=== PATIENT | female | born 1960 | race African-American/Black ===

== ENCOUNTER 2017-02-19 23:39 | Inpatient (IN) | payer OTHER ==
[2017-02-20 00:13] VITALS: BMI 32.2
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
[2017-02-20] MEDS ORDERED: chlordiazePOXIDE HCL 25 MG CAPSULE PO ONE (00:40)
[2017-02-20] MEDS ORDERED: LOPERAMIDE HCL 2 MG CAPSULE PO PRN (00:40)
[2017-02-20] MEDS ORDERED: guaiFENesin/D-METHORPHAN HB 10 ML UNIT-DOSE CUPS PO PRN (00:40)
[2017-02-20] MEDS ORDERED: MAG HYDROX/AL HYDROX/SIMETH 30 ML UNIT-DOSE CUP PO PRN (00:40)
[2017-02-20] MEDS ORDERED: P-EPHED 60MG/TRIPROLIDI 2.5MG TABLET PO PRN (00:40)
[2017-02-20] MEDS ORDERED: chlordiazePOXIDE HCL 25 MG CAPSULE PO PRN (00:40)
[2017-02-20] MEDS ORDERED: MENTHOL/PHENOL 1 EACH UD MM PRN (00:40)
[2017-02-20] MEDS ORDERED: ACETAMINOPHEN 325 MG TABLET (FP) PO PRN (00:40)
[2017-02-20] MEDS ORDERED: diphenhydrAMINE HCL 50 MG CAPSULE PO PRN (00:40)
[2017-02-20] MEDS ORDERED: IBUPROFEN 400 MG TABLET (FP) PO PRN (00:40)
[2017-02-20] MEDS ORDERED: MAGNESIUM HYDROX 2400MG/30ML ORAL SUSPENSION 30 ML CUP PO PRN (00:40)
[2017-02-20] MEDS ORDERED: MAGNESIUM CITRATE 300 ML BOTTLE PO PRN (00:40)
[2017-02-20] MEDS ORDERED: ALBUTEROL SO4 6.7 GM HFA INHALER IH PRN (00:42)
[2017-02-20] MEDS: chlordiazePOXIDE HCL 25 MG CAPSULE PO SCH ×4 (06:30→22:28)
[2017-02-20 09:51] LABS: MCH 31.2 pg (25.7-33.7); MCHC 33.2 g/dl (32.0-36.0); MEAN CELL VOLUME 94.1 fl (80-96); MEAN PLT VOLUME 9.4 fl (7.5-11.1); PLATELET COUNT 178 K/MM3 (134-434); RDW 13.7 % (11.6-15.6); WHITE BLOOD COUNT 5.5 K/mm3 (4.0-10.0)
[2017-02-20] MEDS ORDERED: METOPROLOL SUCCINATE 200 MG TAB.SR.24H PO SCH (10:00)
[2017-02-20] MEDS ORDERED: RIVAROXABAN 20 MG TABLET PO SCH (10:00)
[2017-02-20 10:04] LABS: URINE APPEARANCE CLEAR; URINE BILIRUBIN NEGATIVE (NEGATIVE); URINE BLOOD NEGATIVE (NEGATIVE); URINE COLOR LTYELLOW; URINE GLUCOSE (UA) NEGATIVE (NEGATIVE); URINE KETONE NEGATIVE (NEGATIVE); URINE LEUK ESTERASE NEGATIVE (NEGATIVE); URINE NITRITE NEGATIVE (NEGATIVE); URINE PROTEIN NEGATIVE (NEGATIVE); URINE UROBILINOGEN NEGATIVE E.U./dl (0.2-1.0)
--- NOTE | 2017-02-20 10:19 | PN ---
S CIWA - CIWA Score Nausea/Vomitin-No Nausea/No Vomiting Muscle Tremors: 4-Moderate,w/Arms Extend Anxiety: 3 Agitation: 3 Paroxysmal Sweats: 3 Orientation: 0-Oriented Tacttile Disturbances: 0-None Auditory Disturbances: 0-None Visual Disturbances: 0-None Headache: 0-None Present CIWA-Ar Total Score: 13 S Progress Note (SOAP) Subjective: sweats irritable interrupted sleep tired headache Objective: 02/20/17 10:18 Vital Signs Temperature 97.5 F L 02/20/17 10:10 Pulse Rate 74 02/20/17 10:10 Respiratory Rate 16 02/20/17 10:10 Blood Pressure 153/90 02/20/17 10:10 O2 Sat by Pulse Oximetry (%) Laboratory Tests 02/20/17 02/20/17 07:00 07:00 WBC 5.5 RBC 3.49 L Hgb 10.9 D Hct 32.9 MCV 94.1 MCHC 33.2 RDW 13.7 Plt Count 178 MPV 9.4 Urine Color Ltyellow Urine Appearance Clear Urine pH 5.0 Urine Protein Negative Urine Glucose (UA) Negative Urine Ketones Negative Urine Blood Negative Urine Nitrite Negative Urine Bilirubin Negative Urine Urobilinogen Negative Ur Leukocyte Esterase Negative rest of labs pending awake/alert lying in bed no acute distress Assessment: 02/20/17 10:18 withdrawal sx Plan: continue detox increase fluids labs pending motrin/tylenol prn
[2017-02-20] MEDS: amLODIPine BESYLATE 5 MG TABLET (FP) PO SCH (10:36)
[2017-02-20] MEDS: valACYclovir HCL 500 MG TABLET (FP) PO SCH (10:36)
[2017-02-20] MEDS: METOPROLOL SUCCINATE 100 MG TAB.SR.24H (FP) PO SCH (10:37)
[2017-02-20] MEDS: PRENATAL VITAMINS W/ FOLIC ACID TABLET (FP) PO SCH (10:37)
[2017-02-20 10:41] LABS: ALBUMIN 3.3 g/dl (3.4-5.0); ALK PHOS 86 U/L (45-117); ANION GAP 10 (8-16); BILIRUBIN,TOTAL 0.5 mg/dL (0.2-1.0); CALCIUM 8.8 mg/dL (8.5-10.1); CO2 24 mmol/L (21-32); COCKROFT - GAULT 119.1955; CREATININE 0.8 mg/dL (0.55-1.02); GLUCOSE,RANDOM 93 mg/dL (74-106); SGOT/AST 16 U/L (15-37); SGPT/ALT 20 U/L (12-78); TOT PROT 6.6 g/dl (6.4-8.2)
--- NOTE | 2017-02-20 11:41 | EKG ---
Test Reason : Blood Pressure : / mmHG Vent. Rate : 067 BPM Atrial Rate : 067 BPM P-R Int : 194 ms QRS Dur : 100 ms QT Int : 476 ms P-R-T Axes : 046 011 016 degrees QTc Int : 502 ms NORMAL SINUS RHYTHM PROLONGED QT ABNORMAL ECG WHEN COMPARED WITH ECG OF 20-NOV-2013 23:05, NO SIGNIFICANT CHANGE WAS FOUND Confirmed by BOONE RODRIGUEZ MD ([id number]) on 02/20/2017 11:41:21 AM Referred By: Confirmed By:BOONE RODRIGUEZ MD
[2017-02-20] MEDS: RIVAROXABAN 20 MG TABLET PO SCH (17:11)
[2017-02-20] MEDS: THIAMINE HCL 100 MG TABLET (FP) PO SCH (22:28)
[2017-02-21] MEDS: hydrOXYzine PAMOATE 50 MG CAPSULE (FP) PO PRN (06:28)
[2017-02-21] MEDS: chlordiazePOXIDE HCL 25 MG CAPSULE PO SCH ×4 (06:33→22:10)
--- NOTE | 2017-02-21 09:35 | CONSULT ---
[facility] Psychiatric Consult - Data Date of interview: 02/21/17 Admission source: [facility] Identifying data: This is 56 years old female with psychiatric hospitalization history intoxicated with: Alcohol, Cannmabis and Cocaine Substance Abuse History: PCP abuse history. Smoking Cessation. Smoking history : Current every day smoker. Have you smoked in the past 12 months: Yes. Aproximately how many cigarettes per day: 2. Cigars Per Day: 0. Hx Chewing Tobacco Use: No. Initiated information on smoking cessation: Yes. 'Breaking Loose' booklet given: 02/20/17. - Substance & Tx. History. Hx Alcohol Use: Yes. Hx Substance Use: No. Substance Use Type: Alcohol. Hx Substance Use Treatment: Yes (DETOX AND REHAB ). - Substances Abused. Alcohol. Route: Oral. Frequency: Daily. Amount used: 4-5 CANS OF 22OZ OF BEER AND 1-2 PINTS OF LIQUOR. Age of first use: 3. Date of Last Use: 02/20/17 Medical History: DVT, HTN, Hyperchleterolemia, Syncope history, CAD Psychiatric History: Patient reprots history of depression with most recent psychiatric admission on 2011 at [facility] with suicidal ideation,. denies suicidal attempts history. Patioent reprots taking prior to admission: Seroquel 100mg pop qhs. Zoloft 50mg poqd Physical/Sexual Abuse/Trauma History: Denies Additional Comment: Seroquel 100mg pop qhs. Zoloft 50mg poqd Mental Status Exam - Mental Status Exam Alert and Oriented to: Person Cognitive Function: Fair Patient Appearance: Unkempt Mood: Sad Affect: Flat Patient Behavior: Sedated Speech Pattern: Delayed Voice Loudness: Mildly Soft/Quiet Thought Process: Circumstantial Thought Disorder: Being Controlled Hallucinations: Denies Suicidal Ideation: Denies Homicidal Ideation: Denies Insight/Judgement: Fair Sleep: Difficulty falling asleep Appetite: Weight gain Muscle strength/Tone: Mild Hypotonicity Gait/Station: Shuffling Additional Comments: Seroquel 100mg pop qhs. Zoloft 50mg poqd Psychiatric Findings - Problem List ([place] 1, 2,3) (1) Alcohol dependence with uncomplicated withdrawal Current Visit: Yes Status: Chronic (2) Alcohol dependence Current Visit: No Status: Acute (3) Cannabis dependence Current Visit: No Status: Acute (4) Cocaine dependence Current Visit: No Status: Acute (5) PCP dependence Current Visit: No Status: Acute (6) Substance induced mood disorder Current Visit: No Status: Acute - Initial Treatment Plan Initial Treatment Plan: Seroquel 100mg pop qhs. Zoloft 50mg poqd
[2017-02-21] MEDS: METOPROLOL SUCCINATE 100 MG TAB.SR.24H (FP) PO SCH (10:57)
[2017-02-21] MEDS: PRENATAL VITAMINS W/ FOLIC ACID TABLET (FP) PO SCH (10:57)
[2017-02-21] MEDS: SERTRALINE HCL 50 MG TABLET (FP) PO SCH (10:57)
[2017-02-21] MEDS: amLODIPine BESYLATE 5 MG TABLET (FP) PO SCH (10:57)
[2017-02-21] MEDS: valACYclovir HCL 500 MG TABLET (FP) PO SCH (10:57)
--- NOTE | 2017-02-21 11:09 | PN ---
S CIWA - CIWA Score Nausea/Vomitin-No Nausea/No Vomiting Muscle Tremors: 4-Moderate,w/Arms Extend Anxiety: 3 Agitation: 4-Moderately Restless Paroxysmal Sweats: 3 Orientation: 0-Oriented Tacttile Disturbances: 0-None Auditory Disturbances: 0-None Visual Disturbances: 0-None Headache: 0-None Present CIWA-Ar Total Score: 14 BHS Progress Note (SOAP) Subjective: irritable agitation anxiety interrupted sleep Objective: 02/21/17 11:08 Vital Signs Temperature 97.2 F L 02/21/17 06:00 Pulse Rate 60 02/21/17 06:00 Respiratory Rate 18 02/21/17 06:00 Blood Pressure 131/66 02/21/17 06:00 O2 Sat by Pulse Oximetry (%) Laboratory Tests 02/20/17 02/20/17 02/20/17 07:00 07:00 07:00 WBC 5.5 RBC 3.49 L Hgb 10.9 D Hct 32.9 MCV 94.1 MCHC 33.2 RDW 13.7 Plt Count 178 MPV 9.4 Sodium 140 Potassium 4.5 Chloride 106 Carbon Dioxide 24 Anion Gap 10 BUN 20 H D Creatinine 0.8 Creat Clearance w eGFR > 60 Random Glucose 93 Calcium 8.8 Total Bilirubin 0.5 AST 16 ALT 20 Alkaline Phosphatase 86 Total Protein 6.6 Albumin 3.3 L Urine Color Urine Appearance Urine pH Ur Specific Turner Urine Protein Urine Glucose (UA) Urine Ketones Urine Blood Urine Nitrite Urine Bilirubin Urine Urobilinogen Ur Leukocyte Esterase RPR Titer Nonreactive 02/20/17 07:00 WBC RBC Hgb Hct MCV MCHC RDW Plt Count MPV Sodium Potassium Chloride Carbon Dioxide Anion Gap BUN Creatinine Creat Clearance w eGFR Random Glucose Calcium Total Bilirubin AST ALT Alkaline Phosphatase Total Protein Albumin Urine Color Ltyellow Urine Appearance Clear Urine pH 5.0 Ur Specific Turner 1.015 Urine Protein Negative Urine Glucose (UA) Negative Urine Ketones Negative Urine Blood Negative Urine Nitrite Negative Urine Bilirubin Negative Urine Urobilinogen Negative Ur Leukocyte Esterase Negative RPR Titer awake/alert ambulating no acute distress Assessment: 02/21/17 11:08 withdrawal sx Plan: continue detox increase fluids
[2017-02-21] MEDS: RIVAROXABAN 20 MG TABLET PO SCH (17:39)
[2017-02-21] MEDS: THIAMINE HCL 100 MG TABLET (FP) PO SCH (22:10)
[2017-02-21] MEDS: QUEtiapine FUMARATE 100 MG TABLET (FP) PO SCH (22:10)
[2017-02-22] MEDS: chlordiazePOXIDE 5 MG CAPSULE PO SCH ×4 (05:43→22:47)
--- NOTE | 2017-02-22 10:30 | PN ---
BHS Progress Note (SOAP) Subjective: irritable agitation angry/crying Objective: 02/22/17 10:29 Vital Signs Temperature 98.1 F 02/22/17 10:13 Pulse Rate 90 02/22/17 10:13 Respiratory Rate 18 02/22/17 10:13 Blood Pressure 133/75 02/22/17 10:13 O2 Sat by Pulse Oximetry (%) awake/alert ambulating no acute distress Assessment: 02/22/17 10:29 withdrawal sx Plan: continue detox increase fluids psych revisit reordered d/c in am
[2017-02-22] MEDS: amLODIPine BESYLATE 5 MG TABLET (FP) PO SCH (10:41)
[2017-02-22] MEDS: valACYclovir HCL 500 MG TABLET (FP) PO SCH (10:41)
[2017-02-22] MEDS: METOPROLOL SUCCINATE 100 MG TAB.SR.24H (FP) PO SCH (10:41)
[2017-02-22] MEDS: SERTRALINE HCL 50 MG TABLET (FP) PO SCH (10:41)
[2017-02-22] MEDS: PRENATAL VITAMINS W/ FOLIC ACID TABLET (FP) PO SCH (10:41)
[2017-02-22] MEDS: hydrOXYzine PAMOATE 50 MG CAPSULE (FP) PO PRN (10:43)
[2017-02-22] MEDS: RIVAROXABAN 20 MG TABLET PO SCH (18:29)
[2017-02-22] MEDS: THIAMINE HCL 100 MG TABLET (FP) PO SCH (22:48)
[2017-02-22] MEDS: QUEtiapine FUMARATE 100 MG TABLET (FP) PO SCH (22:48)
[2017-02-23] MEDS: chlordiazePOXIDE HCL 10 MG CAPSULE PO SCH ×4 (05:35→22:24)
--- NOTE | 2017-02-23 09:21 | PN ---
S Progress Note (SOAP) Subjective: ALERT,NO COMPLAINT Objective: 02/23/17 09:20 Vital Signs Temperature 96.6 F L 02/23/17 06:22 Pulse Rate 64 02/23/17 06:22 Respiratory Rate 18 02/23/17 06:22 Blood Pressure 148/95 02/23/17 06:22 O2 Sat by Pulse Oximetry (%) Assessment: 02/23/17 09:20 DETOX COMPLETED,NO WITHDRAWAL SYMPTOM Plan: DISCHARGE TODAY,FOLLOW UP WITH AFTER CARE PROGRAM ARRANGEMENT
--- NOTE | 2017-02-23 09:22 | DS ---
[facility] Detox Discharge Summary Admission Date: 02/20/17 Discharge Date: 02/23/17 - Physical Exam Results Vital Signs: Vital Signs Temperature 96.6 F L 02/23/17 06:22 Pulse Rate 64 02/23/17 06:22 Respiratory Rate 18 02/23/17 06:22 Blood Pressure 148/95 02/23/17 06:22 O2 Sat by Pulse Oximetry (%) - Medication Discharge Medications: Ambulatory Orders Aspirin 81 mg PO AM 11/21/13 Citalopram Hydrobromide [Celexa -] 20 mg PO DAILY 11/21/13 Quetiapine Fumarate [Seroquel] 100 mg PO HS 11/21/13 Citalopram Hydrobromide [Celexa -] 20 mg PO DAILY #30 tablet 11/23/13 Quetiapine Fumarate [Seroquel -] 100 mg PO HS #30 tablet 11/23/13 Isosorbide Dinitrate [Isordil] 30 mg PO AM #30 tablet 11/25/13 Quetiapine Fumarate [Seroquel -] 50 mg PO HS #30 tablet 08/07/16 Quetiapine Fumarate [Seroquel -] 50 mg PO HS #30 tablet 08/07/16 Sertraline HCl [Zoloft -] 50 mg PO DAILY #30 tablet 08/07/16 Amlodipine Besylate [Norvasc -] 5 mg PO DAILY #30 tablet 08/10/16 Aspirin [ASA -] 81 mg PO AM #30 tab.chew 08/10/16 Atorvastatin Ca [Lipitor] 80 mg PO HS #30 tab 08/10/16 Clopidogrel Bisulfate [Plavix -] 75 mg PO DAILY #30 tablet 08/10/16 Isosorbide Dinitrate [Isordil -] 30 mg PO AM #30 tablet 08/10/16 Metoprolol Succinate [Toprol XL -] 200 mg PO DAILY #30 tab.sr.24h 08/10/16 Valacyclovir HCl [Valtrex -] 500 mg PO DAILY #10 tablet 08/10/16 Quetiapine Fumarate [Seroquel -] 50 mg PO HS #30 tablet 02/21/17 Sertraline HCl [Zoloft -] 50 mg PO DAILY #30 tablet 02/21/17
--- NOTE | 2017-02-23 09:32 | PN ---
B[facility] Progress Note Note: ALERT,IRRITABLE,ANXIOUS,WILL OBSERVE PATIENT,CONTINUE DETOX
[2017-02-23] MEDS: METOPROLOL SUCCINATE 100 MG TAB.SR.24H (FP) PO SCH (10:43)
[2017-02-23] MEDS: SERTRALINE HCL 50 MG TABLET (FP) PO SCH (10:43)
[2017-02-23] MEDS: amLODIPine BESYLATE 5 MG TABLET (FP) PO SCH (10:43)
[2017-02-23] MEDS: PRENATAL VITAMINS W/ FOLIC ACID TABLET (FP) PO SCH (10:43)
[2017-02-23] MEDS: valACYclovir HCL 500 MG TABLET (FP) PO SCH (10:43)
[2017-02-23] MEDS: RIVAROXABAN 20 MG TABLET PO SCH (17:14)
[2017-02-23] MEDS: hydrOXYzine PAMOATE 50 MG CAPSULE (FP) PO PRN (19:13)
[2017-02-23] MEDS: QUEtiapine FUMARATE 100 MG TABLET (FP) PO SCH (22:24)
[2017-02-23] MEDS: THIAMINE HCL 100 MG TABLET (FP) PO SCH (22:24)
[2017-02-24 06:45] VITALS: BP 137/80; PULSE 61; TEMP 97.5
[2017-02-24] MEDS: METOPROLOL SUCCINATE 100 MG TAB.SR.24H (FP) PO SCH (09:28)
[2017-02-24] MEDS: PRENATAL VITAMINS W/ FOLIC ACID TABLET (FP) PO SCH (09:28)
[2017-02-24] MEDS: valACYclovir HCL 500 MG TABLET (FP) PO SCH (09:28)
[2017-02-24] MEDS: SERTRALINE HCL 50 MG TABLET (FP) PO SCH (09:29)
[2017-02-24] MEDS: amLODIPine BESYLATE 5 MG TABLET (FP) PO SCH (09:29)
--- NOTE | 2017-02-24 09:29 | PN ---
S Progress Note (SOAP) Subjective: ALERT,NO COMPLAINT Objective: 02/24/17 09:28 Vital Signs Temperature 97.5 F L 02/24/17 06:00 Pulse Rate 61 02/24/17 06:00 Respiratory Rate 18 02/24/17 06:00 Blood Pressure 137/80 02/24/17 06:00 O2 Sat by Pulse Oximetry (%) Assessment: 02/24/17 09:28 DETOX COMPLETED,NO WITHDRAWAL SYMPTOM Plan: DISCHARGE TODAY TO [facility]
--- NOTE | 2017-02-24 09:36 | DS ---
[facility] Detox Discharge Summary Admission Date: 02/20/17 Discharge Date: 02/24/17 - History Present History: Alcohol Dependence Additional Comments: FOLLOW UP WITH [facility] Pertinent Past History: ESSENTIAL HYPERTENSION HYPERCHOLESTEROLEMIA DVT HISTORY GENITAL HERPES - Physical Exam Results Vital Signs: Vital Signs Temperature 97.5 F L 02/24/17 06:00 Pulse Rate 61 02/24/17 06:00 Respiratory Rate 18 02/24/17 06:00 Blood Pressure 137/80 02/24/17 06:00 O2 Sat by Pulse Oximetry (%) Pertinent Admission Physical Exam Findings: WITHDRAWAL SYMPTOM - Treatment Hospital Course: Detox Protocol Followed, Detoxed Safely, Responded well, Discharged Condition Good, Rehab Referral Accepted Patient has Accepted a Rehab Referral to: [facility] - Medication Discharge Medications: Ambulatory Orders Aspirin 81 mg PO AM 11/21/13 Citalopram Hydrobromide [Celexa -] 20 mg PO DAILY 11/21/13 Quetiapine Fumarate [Seroquel] 100 mg PO HS 11/21/13 Citalopram Hydrobromide [Celexa -] 20 mg PO DAILY #30 tablet 11/23/13 Quetiapine Fumarate [Seroquel -] 100 mg PO HS #30 tablet 11/23/13 Isosorbide Dinitrate [Isordil] 30 mg PO AM #30 tablet 11/25/13 Quetiapine Fumarate [Seroquel -] 50 mg PO HS #30 tablet 08/07/16 Quetiapine Fumarate [Seroquel -] 50 mg PO HS #30 tablet 08/07/16 Sertraline HCl [Zoloft -] 50 mg PO DAILY #30 tablet 08/07/16 Amlodipine Besylate [Norvasc -] 5 mg PO DAILY #30 tablet 08/10/16 Aspirin [ASA -] 81 mg PO AM #30 tab.chew 08/10/16 Atorvastatin Ca [Lipitor] 80 mg PO HS #30 tab 08/10/16 Clopidogrel Bisulfate [Plavix -] 75 mg PO DAILY #30 tablet 08/10/16 Isosorbide Dinitrate [Isordil -] 30 mg PO AM #30 tablet 08/10/16 Metoprolol Succinate [Toprol XL -] 200 mg PO DAILY #30 tab.sr.24h 08/10/16 Valacyclovir HCl [Valtrex -] 500 mg PO DAILY #10 tablet 08/10/16 Quetiapine Fumarate [Seroquel -] 50 mg PO HS #30 tablet 02/21/17 Sertraline HCl [Zoloft -] 50 mg PO DAILY #30 tablet 02/21/17 - Diagnosis (1) Alcohol dependence with uncomplicated withdrawal Current Visit: Yes Status: Chronic (2) DVT (deep venous thrombosis) Current Visit: Yes Status: Chronic (3) Essential hypertension Current Visit: Yes Status: Chronic (4) Genital herpes in women Current Visit: Yes Status: Chronic (5) Hypercholesterolemia Current Visit: Yes Status: Chronic (6) Depressive disorder Current Visit: No Status: Chronic - AMA Did Patient Leave Against Medical Advice: No
== END 2017-02-24 10:09 | disposition home or self-care (01) | DRG 775 ==
LOC: YASAS 23:39 → Y6N 02-20 01:49
PROVIDERS: ADMIT Internal Medicine; ATTEND Internal Medicine
PROC: HZ2ZZZZ Detoxification Services for Substance Abuse Treatment (ICD-10-PCS; principal; 2017-02-20)
DX: F10.230 Alcohol dependence with withdrawal, uncomplicated (principal); F32.9 Major depressive disorder, single episode, unspecified; F19.24 Other psychoactive substance dependence with psychoactive substance-induced mood disorder; Z86.718 Personal history of other venous thrombosis and embolism; I10 Essential (primary) hypertension; A60.00 Herpesviral infection of urogenital system, unspecified; E78.00 Pure hypercholesterolemia, unspecified; Z72.0 Tobacco use; D64.9 Anemia, unspecified; J45.909 Unspecified asthma, uncomplicated; J44.9 Chronic obstructive pulmonary disease, unspecified; I25.10 Atherosclerotic heart disease of native coronary artery without angina pectoris; Z95.5 Presence of coronary angioplasty implant and graft; Z91.14 Patient's other noncompliance with medication regimen; Z91.5 Personal history of self-harm
CPT/HCPCS: 36415; 80053; 81003; 85027; 86593; 93005; 93010

== ENCOUNTER 2017-02-24 10:12 | Inpatient (IN) | payer OTHER ==
[2017-02-24] MEDS ORDERED: LOPERAMIDE HCL 2 MG CAPSULE PO PRN (11:58)
[2017-02-24] MEDS ORDERED: guaiFENesin/D-METHORPHAN HB 10 ML UNIT-DOSE CUPS PO PRN (11:58)
[2017-02-24] MEDS ORDERED: MAGNESIUM HYDROX 2400MG/30ML ORAL SUSPENSION 30 ML CUP PO PRN (11:58)
[2017-02-24] MEDS ORDERED: IBUPROFEN 400 MG TABLET (FP) PO PRN (11:58)
[2017-02-24] MEDS ORDERED: MAGNESIUM CITRATE 300 ML BOTTLE PO PRN (11:58)
[2017-02-24] MEDS ORDERED: MENTHOL/PHENOL 1 EACH UD MM PRN (11:58)
[2017-02-24] MEDS ORDERED: MAG HYDROX/AL HYDROX/SIMETH 30 ML UNIT-DOSE CUP PO PRN (11:58)
[2017-02-24] MEDS ORDERED: P-EPHED 60MG/TRIPROLIDI 2.5MG TABLET PO PRN (11:58)
[2017-02-24] MEDS ORDERED: ALBUTEROL SO4 6.7 GM HFA INHALER IH PRN (12:00)
[2017-02-24] MEDS: hydrOXYzine PAMOATE 50 MG CAPSULE (FP) PO PRN (13:11)
[2017-02-24] MEDS: QUEtiapine FUMARATE 100 MG TABLET (FP) PO SCH (21:43)
[2017-02-24] MEDS: THIAMINE HCL 100 MG TABLET (FP) PO SCH (21:44)
[2017-02-25] MEDS ORDERED: METOPROLOL SUCCINATE 100 MG TAB.SR.24H (FP) PO SCH (10:00)
[2017-02-25] MEDS ORDERED: CITALOPRAM HYDROBROMIDE 20 MG TABLET (FP) PO SCH (10:00)
[2017-02-25] MEDS ORDERED: RIVAROXABAN 20 MG TABLET PO SCH (10:00)
[2017-02-25] MEDS: valACYclovir HCL 500 MG TABLET (FP) PO SCH (10:36)
[2017-02-25] MEDS: SERTRALINE HCL 50 MG TABLET (FP) PO SCH (10:36)
[2017-02-25] MEDS: PRENATAL VITAMINS W/ FOLIC ACID TABLET (FP) PO SCH (10:36)
[2017-02-25] MEDS: ASPIRIN 81 MG CHEWABLE TABLETS PO SCH (10:37)
[2017-02-25] MEDS: amLODIPine BESYLATE 5 MG TABLET (FP) PO SCH (10:38)
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
[2017-02-25 12:38] LABS: HIV 1 & 2 AB NEGATIVE; HIV 1 AGp24 NEGATIVE
--- NOTE | 2017-02-25 13:13 | PN ---
BHS Progress Note Note: Slight hypotension with metoprolol xl Vital Signs 02/25/17 02/25/17 07:20 09:23 Temperature 97.8 F Pulse Rate 62 77 Respiratory 18 Rate Blood Pressure 126/86 107/74 P : metoprolol 50mg tid
[2017-02-25] MEDS: METOPROLOL TARTRATE 50 MG TABLET (FP) PO SCH ×2 (14:29→21:33)
[2017-02-25] MEDS: hydrOXYzine PAMOATE 50 MG CAPSULE (FP) PO PRN (14:30)
[2017-02-25] MEDS: RIVAROXABAN 20 MG TABLET PO SCH (18:20)
[2017-02-25] MEDS: QUEtiapine FUMARATE 100 MG TABLET (FP) PO SCH (21:34)
[2017-02-25] MEDS: THIAMINE HCL 100 MG TABLET (FP) PO SCH (21:34)
[2017-02-25] MEDS: prednisoLONE ACETATE 1% OPHTH SUSP 5 ML BOTTLE OD SCH (23:30)
[2017-02-26] MEDS: METOPROLOL TARTRATE 50 MG TABLET (FP) PO SCH ×3 (06:29→21:52)
[2017-02-26] MEDS ORDERED: PT OWN MED DRAWER 7, Y5N ONE ×4 (08:48→21:03)
[2017-02-26] MEDS: PRENATAL VITAMINS W/ FOLIC ACID TABLET (FP) PO SCH (10:41)
[2017-02-26] MEDS: amLODIPine BESYLATE 5 MG TABLET (FP) PO SCH (10:41)
[2017-02-26] MEDS: valACYclovir HCL 500 MG TABLET (FP) PO SCH (10:41)
[2017-02-26] MEDS: ASPIRIN 81 MG CHEWABLE TABLETS PO SCH (10:41)
[2017-02-26] MEDS: SERTRALINE HCL 50 MG TABLET (FP) PO SCH (10:41)
[2017-02-26] MEDS: prednisoLONE ACETATE 1% OPHTH SUSP 5 ML BOTTLE OD SCH ×4 (10:42→21:53)
--- NOTE | 2017-02-26 13:37 | HP ---
[facility] Rehab Assess/Revision - Admission History Admitted to Rehab from: [facility] Date of Admission to Rehab: 02/24/17 - Vital signs Vital Signs: Vital Signs Period Temp Pulse Resp BP Sys/Christina Pulse Ox Last 24 Hr 98 F 65-74 18-18 115-135/83-86 - Findings Detox History & Physical reviewed: Yes Concur with findings: Yes
[2017-02-26] MEDS ORDERED: NITROGLYCERIN SUBLINGUAL 1/150 0.4 MG TAB SL PRN (13:38)
[2017-02-26] MEDS: RIVAROXABAN 20 MG TABLET PO SCH (18:13)
[2017-02-26] MEDS: ISOSORBIDE DINITRATE 10 MG TABLET (FP) PO SCH (21:52)
[2017-02-26] MEDS: QUEtiapine FUMARATE 100 MG TABLET (FP) PO SCH (21:52)
[2017-02-26] MEDS: THIAMINE HCL 100 MG TABLET (FP) PO SCH (21:55)
[2017-02-27] MEDS: METOPROLOL TARTRATE 50 MG TABLET (FP) PO SCH ×3 (06:34→21:46)
[2017-02-27] MEDS ORDERED: PT OWN MED DRAWER 7, Y5N ONE ×3 (08:34→22:48)
[2017-02-27] MEDS: PRENATAL VITAMINS W/ FOLIC ACID TABLET (FP) PO SCH (09:43)
[2017-02-27] MEDS: amLODIPine BESYLATE 5 MG TABLET (FP) PO SCH (09:43)
[2017-02-27] MEDS: valACYclovir HCL 500 MG TABLET (FP) PO SCH (09:44)
[2017-02-27] MEDS: ASPIRIN 81 MG CHEWABLE TABLETS PO SCH (09:44)
[2017-02-27] MEDS: SERTRALINE HCL 50 MG TABLET (FP) PO SCH (09:44)
[2017-02-27] MEDS: ISOSORBIDE DINITRATE 10 MG TABLET (FP) PO SCH ×2 (09:46→21:48)
[2017-02-27] MEDS: ACETAMINOPHEN 325 MG TABLET (FP) PO PRN (09:46)
[2017-02-27] MEDS: prednisoLONE ACETATE 1% OPHTH SUSP 5 ML BOTTLE OD SCH ×4 (09:47→21:47)
[2017-02-27] MEDS ORDERED: ISOSORBIDE DINITRATE 5 MG TABLET PO SCH (10:00)
[2017-02-27] MEDS: hydrOXYzine PAMOATE 50 MG CAPSULE (FP) PO PRN (13:35)
[2017-02-27] MEDS: TOPIRAMATE 25 MG TABLET (FP) PO SCH (15:27)
[2017-02-27] MEDS: RIVAROXABAN 20 MG TABLET PO SCH (18:30)
[2017-02-27] MEDS: QUEtiapine FUMARATE 100 MG TABLET (FP) PO SCH (21:46)
[2017-02-27] MEDS: THIAMINE HCL 100 MG TABLET (FP) PO SCH (21:46)
[2017-02-27] MEDS: PRAMIPEXOLE DIHYDROCHLORIDE 0.125 MG TABLET PO SCH (21:48)
[2017-02-28] MEDS: ACETAMINOPHEN 325 MG TABLET (FP) PO PRN (06:15)
[2017-02-28] MEDS ORDERED: PT OWN MED DRAWER 7, Y5N ONE ×2 (08:13→21:35)
[2017-02-28] MEDS: ASPIRIN 81 MG CHEWABLE TABLETS PO SCH (10:26)
[2017-02-28] MEDS: METOPROLOL TARTRATE 50 MG TABLET (FP) PO SCH ×2 (10:26→21:35)
[2017-02-28] MEDS: prednisoLONE ACETATE 1% OPHTH SUSP 5 ML BOTTLE OD SCH ×4 (10:26→21:34)
[2017-02-28] MEDS: amLODIPine BESYLATE 5 MG TABLET (FP) PO SCH (10:26)
[2017-02-28] MEDS: SERTRALINE HCL 50 MG TABLET (FP) PO SCH (10:26)
[2017-02-28] MEDS: PRENATAL VITAMINS W/ FOLIC ACID TABLET (FP) PO SCH (10:26)
[2017-02-28] MEDS: valACYclovir HCL 500 MG TABLET (FP) PO SCH (10:26)
[2017-02-28] MEDS: TOPIRAMATE 25 MG TABLET (FP) PO SCH (10:27)
[2017-02-28] MEDS: ISOSORBIDE DINITRATE 10 MG TABLET (FP) PO SCH (10:28)
--- NOTE | 2017-02-28 15:15 | PN ---
S Progress Note Note: pt. refuses isordil,she no longer takes it at home. d/c isordil
[2017-02-28] MEDS: RIVAROXABAN 20 MG TABLET PO SCH (18:30)
[2017-02-28] MEDS: QUEtiapine FUMARATE 100 MG TABLET (FP) PO SCH (21:32)
[2017-02-28] MEDS: THIAMINE HCL 100 MG TABLET (FP) PO SCH (21:33)
[2017-02-28] MEDS: PRAMIPEXOLE DIHYDROCHLORIDE 0.125 MG TABLET PO SCH (21:35)
[2017-03-01] MEDS ORDERED: PT OWN MED DRAWER 7, Y5N ONE ×4 (08:40→18:11)
[2017-03-01] MEDS: TOPIRAMATE 25 MG TABLET (FP) PO SCH ×2 (10:53→21:39)
[2017-03-01] MEDS: SERTRALINE HCL 50 MG TABLET (FP) PO SCH (10:54)
[2017-03-01] MEDS: PRENATAL VITAMINS W/ FOLIC ACID TABLET (FP) PO SCH (10:54)
[2017-03-01] MEDS: ASPIRIN 81 MG CHEWABLE TABLETS PO SCH (10:54)
[2017-03-01] MEDS: valACYclovir HCL 500 MG TABLET (FP) PO SCH (10:54)
[2017-03-01] MEDS: prednisoLONE ACETATE 1% OPHTH SUSP 5 ML BOTTLE OD SCH ×4 (10:54→22:35)
[2017-03-01] MEDS: METOPROLOL TARTRATE 50 MG TABLET (FP) PO SCH ×2 (10:54→21:38)
[2017-03-01] MEDS: amLODIPine BESYLATE 5 MG TABLET (FP) PO SCH (10:55)
--- NOTE | 2017-03-01 15:12 | PN ---
BHS Progress Note Note: C/O headache,she thinks that it's caused by amlodipine. D/C amlodipine
[2017-03-01] MEDS: RIVAROXABAN 20 MG TABLET PO SCH (18:09)
[2017-03-01] MEDS: QUEtiapine FUMARATE 100 MG TABLET (FP) PO SCH (21:38)
[2017-03-01] MEDS: THIAMINE HCL 100 MG TABLET (FP) PO SCH (21:38)
[2017-03-01] MEDS: PRAMIPEXOLE DIHYDROCHLORIDE 0.125 MG TABLET PO SCH (21:39)
[2017-03-02] MEDS ORDERED: PT OWN MED DRAWER 7, Y5N ONE (08:24)
[2017-03-02] MEDS: PRENATAL VITAMINS W/ FOLIC ACID TABLET (FP) PO SCH (09:48)
[2017-03-02] MEDS: SERTRALINE HCL 50 MG TABLET (FP) PO SCH (09:48)
[2017-03-02] MEDS: ASPIRIN 81 MG CHEWABLE TABLETS PO SCH (09:48)
[2017-03-02] MEDS: prednisoLONE ACETATE 1% OPHTH SUSP 5 ML BOTTLE OD SCH ×4 (09:48→21:34)
[2017-03-02] MEDS: valACYclovir HCL 500 MG TABLET (FP) PO SCH (09:48)
[2017-03-02] MEDS: TOPIRAMATE 25 MG TABLET (FP) PO SCH ×2 (09:49→21:33)
[2017-03-02] MEDS: METOPROLOL TARTRATE 50 MG TABLET (FP) PO SCH ×2 (09:51→21:33)
[2017-03-02] MEDS: RIVAROXABAN 20 MG TABLET PO SCH (18:20)
[2017-03-02] MEDS: hydrOXYzine PAMOATE 50 MG CAPSULE (FP) PO PRN (18:22)
[2017-03-02] MEDS: PRAMIPEXOLE DIHYDROCHLORIDE 0.125 MG TABLET PO SCH (20:03)
[2017-03-02] MEDS: THIAMINE HCL 100 MG TABLET (FP) PO SCH (21:33)
[2017-03-02] MEDS: QUEtiapine FUMARATE 100 MG TABLET (FP) PO SCH (21:33)
[2017-03-02] MEDS: diphenhydrAMINE HCL 50 MG CAPSULE PO PRN (21:34)
[2017-03-03] MEDS: ASPIRIN 81 MG CHEWABLE TABLETS PO SCH (09:38)
[2017-03-03] MEDS: SERTRALINE HCL 50 MG TABLET (FP) PO SCH (09:38)
[2017-03-03] MEDS: prednisoLONE ACETATE 1% OPHTH SUSP 5 ML BOTTLE OD SCH ×4 (09:38→21:20)
[2017-03-03] MEDS: PRENATAL VITAMINS W/ FOLIC ACID TABLET (FP) PO SCH (09:38)
[2017-03-03] MEDS: METOPROLOL TARTRATE 50 MG TABLET (FP) PO SCH ×2 (09:39→21:19)
[2017-03-03] MEDS: valACYclovir HCL 500 MG TABLET (FP) PO SCH (09:39)
[2017-03-03] MEDS: TOPIRAMATE 25 MG TABLET (FP) PO SCH ×2 (09:39→21:19)
[2017-03-03] MEDS ORDERED: PT OWN MED DRAWER 7, Y5N ONE (19:06)
[2017-03-03] MEDS: RIVAROXABAN 20 MG TABLET PO SCH (19:09)
[2017-03-03] MEDS: PRAMIPEXOLE DIHYDROCHLORIDE 0.25 MG TABLET PO SCH (19:12)
[2017-03-03] MEDS: QUEtiapine FUMARATE 100 MG TABLET (FP) PO SCH (21:19)
[2017-03-03] MEDS: THIAMINE HCL 100 MG TABLET (FP) PO SCH (21:19)
[2017-03-03] MEDS: diphenhydrAMINE HCL 50 MG CAPSULE PO PRN (21:19)
[2017-03-04] MEDS ORDERED: PT OWN MED DRAWER 7, Y5N ONE ×4 (08:37→19:14)
[2017-03-04] MEDS: PRENATAL VITAMINS W/ FOLIC ACID TABLET (FP) PO SCH (10:17)
[2017-03-04] MEDS: prednisoLONE ACETATE 1% OPHTH SUSP 5 ML BOTTLE OD SCH ×4 (10:17→21:40)
[2017-03-04] MEDS: ASPIRIN 81 MG CHEWABLE TABLETS PO SCH (10:17)
[2017-03-04] MEDS: TOPIRAMATE 25 MG TABLET (FP) PO SCH ×2 (10:18→21:39)
[2017-03-04] MEDS: valACYclovir HCL 500 MG TABLET (FP) PO SCH (10:18)
[2017-03-04] MEDS: METOPROLOL TARTRATE 50 MG TABLET (FP) PO SCH ×2 (10:18→21:39)
[2017-03-04] MEDS: SERTRALINE HCL 50 MG TABLET (FP) PO SCH (10:18)
[2017-03-04] MEDS: RIVAROXABAN 20 MG TABLET PO SCH (18:25)
[2017-03-04] MEDS: QUEtiapine FUMARATE 100 MG TABLET (FP) PO SCH (21:39)
[2017-03-04] MEDS: THIAMINE HCL 100 MG TABLET (FP) PO SCH (21:39)
[2017-03-04] MEDS: PRAMIPEXOLE DIHYDROCHLORIDE 0.25 MG TABLET PO SCH (21:40)
[2017-03-04] MEDS: diphenhydrAMINE HCL 50 MG CAPSULE PO PRN (21:40)
[2017-03-05] MEDS: ASPIRIN 81 MG CHEWABLE TABLETS PO SCH (09:57)
[2017-03-05] MEDS: prednisoLONE ACETATE 1% OPHTH SUSP 5 ML BOTTLE OD SCH ×2 (09:57→13:06)
[2017-03-05] MEDS: SERTRALINE HCL 50 MG TABLET (FP) PO SCH (09:58)
[2017-03-05] MEDS: METOPROLOL TARTRATE 50 MG TABLET (FP) PO SCH ×2 (09:58→21:17)
[2017-03-05] MEDS: TOPIRAMATE 25 MG TABLET (FP) PO SCH ×2 (09:58→21:18)
[2017-03-05] MEDS: PRENATAL VITAMINS W/ FOLIC ACID TABLET (FP) PO SCH (09:59)
[2017-03-05] MEDS: RIVAROXABAN 20 MG TABLET PO SCH (18:25)
[2017-03-05] MEDS: THIAMINE HCL 100 MG TABLET (FP) PO SCH (21:17)
[2017-03-05] MEDS: diphenhydrAMINE HCL 50 MG CAPSULE PO PRN (21:17)
[2017-03-05] MEDS: QUEtiapine FUMARATE 100 MG TABLET (FP) PO SCH (21:18)
[2017-03-05] MEDS: PRAMIPEXOLE DIHYDROCHLORIDE 0.25 MG TABLET PO SCH (22:11)
[2017-03-06] MEDS: ASPIRIN 81 MG CHEWABLE TABLETS PO SCH (09:43)
[2017-03-06] MEDS: METOPROLOL TARTRATE 50 MG TABLET (FP) PO SCH ×2 (09:43→21:26)
[2017-03-06] MEDS: SERTRALINE HCL 50 MG TABLET (FP) PO SCH (09:43)
[2017-03-06] MEDS: PRENATAL VITAMINS W/ FOLIC ACID TABLET (FP) PO SCH (09:44)
[2017-03-06] MEDS: TOPIRAMATE 25 MG TABLET (FP) PO SCH (09:44)
[2017-03-06] MEDS: RIVAROXABAN 20 MG TABLET PO SCH (18:10)
[2017-03-06] MEDS: THIAMINE HCL 100 MG TABLET (FP) PO SCH (21:25)
[2017-03-06] MEDS: QUEtiapine FUMARATE 100 MG TABLET (FP) PO SCH (21:25)
[2017-03-06] MEDS: diphenhydrAMINE HCL 50 MG CAPSULE PO PRN (21:26)
[2017-03-06] MEDS: PRAMIPEXOLE DIHYDROCHLORIDE 0.25 MG TABLET PO SCH (21:27)
[2017-03-07] MEDS: METOPROLOL TARTRATE 50 MG TABLET (FP) PO SCH ×2 (10:06→21:31)
[2017-03-07] MEDS: TOPIRAMATE 25 MG TABLET (FP) PO SCH (10:06)
[2017-03-07] MEDS: SERTRALINE HCL 50 MG TABLET (FP) PO SCH (10:06)
[2017-03-07] MEDS: PRENATAL VITAMINS W/ FOLIC ACID TABLET (FP) PO SCH (10:06)
[2017-03-07] MEDS: ASPIRIN 81 MG CHEWABLE TABLETS PO SCH (10:06)
[2017-03-07] MEDS: RIVAROXABAN 20 MG TABLET PO SCH (18:30)
[2017-03-07] MEDS: diphenhydrAMINE HCL 50 MG CAPSULE PO PRN (21:31)
[2017-03-07] MEDS: QUEtiapine FUMARATE 100 MG TABLET (FP) PO SCH (21:31)
[2017-03-07] MEDS: THIAMINE HCL 100 MG TABLET (FP) PO SCH (21:31)
[2017-03-07] MEDS: PRAMIPEXOLE DIHYDROCHLORIDE 0.25 MG TABLET PO SCH (21:32)
[2017-03-08] MEDS: METOPROLOL TARTRATE 25 MG TABLET (FP) PO SCH ×2 (10:21→22:12)
[2017-03-08] MEDS: PRENATAL VITAMINS W/ FOLIC ACID TABLET (FP) PO SCH (10:21)
[2017-03-08] MEDS: ASPIRIN 81 MG CHEWABLE TABLETS PO SCH (10:21)
[2017-03-08] MEDS: SERTRALINE HCL 50 MG TABLET (FP) PO SCH (10:21)
[2017-03-08] MEDS: TOPIRAMATE 25 MG TABLET (FP) PO SCH (10:22)
[2017-03-08] MEDS: valACYclovir HCL 500 MG TABLET (FP) PO SCH (15:18)
[2017-03-08] MEDS: RIVAROXABAN 20 MG TABLET PO SCH (17:50)
[2017-03-08] MEDS: PRAMIPEXOLE DIHYDROCHLORIDE 0.25 MG TABLET PO SCH (22:12)
[2017-03-08] MEDS: QUEtiapine FUMARATE 100 MG TABLET (FP) PO SCH (22:13)
[2017-03-08] MEDS: THIAMINE HCL 100 MG TABLET (FP) PO SCH (22:13)
[2017-03-09] MEDS: METOPROLOL TARTRATE 25 MG TABLET (FP) PO SCH ×2 (10:21→21:38)
[2017-03-09] MEDS: ASPIRIN 81 MG CHEWABLE TABLETS PO SCH (10:21)
[2017-03-09] MEDS: SERTRALINE HCL 50 MG TABLET (FP) PO SCH (10:21)
[2017-03-09] MEDS: valACYclovir HCL 500 MG TABLET (FP) PO SCH (10:21)
[2017-03-09] MEDS: PRENATAL VITAMINS W/ FOLIC ACID TABLET (FP) PO SCH (10:21)
[2017-03-09] MEDS: hydrOXYzine PAMOATE 50 MG CAPSULE (FP) PO PRN (10:21)
[2017-03-09] MEDS: TOPIRAMATE 25 MG TABLET (FP) PO SCH (10:22)
[2017-03-09] MEDS: RIVAROXABAN 20 MG TABLET PO SCH (17:25)
[2017-03-09] MEDS: THIAMINE HCL 100 MG TABLET (FP) PO SCH (21:37)
[2017-03-09] MEDS: QUEtiapine FUMARATE 100 MG TABLET (FP) PO SCH (21:38)
[2017-03-09] MEDS: PRAMIPEXOLE DIHYDROCHLORIDE 0.25 MG TABLET PO SCH (21:38)
[2017-03-09] MEDS: diphenhydrAMINE HCL 50 MG CAPSULE PO PRN (21:38)
[2017-03-10] MEDS: ASPIRIN 81 MG CHEWABLE TABLETS PO SCH (10:06)
[2017-03-10] MEDS: valACYclovir HCL 500 MG TABLET (FP) PO SCH (10:06)
[2017-03-10] MEDS: PRENATAL VITAMINS W/ FOLIC ACID TABLET (FP) PO SCH (10:06)
[2017-03-10] MEDS: TOPIRAMATE 25 MG TABLET (FP) PO SCH (10:07)
[2017-03-10] MEDS: SERTRALINE HCL 50 MG TABLET (FP) PO SCH (10:07)
[2017-03-10] MEDS: METOPROLOL TARTRATE 25 MG TABLET (FP) PO SCH ×2 (10:07→21:45)
[2017-03-10] MEDS: RIVAROXABAN 20 MG TABLET PO SCH (17:30)
[2017-03-10] MEDS: PRAMIPEXOLE DIHYDROCHLORIDE 0.25 MG TABLET PO SCH (21:42)
[2017-03-10] MEDS: THIAMINE HCL 100 MG TABLET (FP) PO SCH (21:42)
[2017-03-10] MEDS: diphenhydrAMINE HCL 50 MG CAPSULE PO PRN (21:43)
[2017-03-10] MEDS: QUEtiapine FUMARATE 100 MG TABLET (FP) PO SCH (21:44)
[2017-03-10] MEDS: ACETAMINOPHEN 325 MG TABLET (FP) PO PRN (21:44)
[2017-03-11] MEDS: valACYclovir HCL 500 MG TABLET (FP) PO SCH (10:13)
[2017-03-11] MEDS: ASPIRIN 81 MG CHEWABLE TABLETS PO SCH (10:13)
[2017-03-11] MEDS: TOPIRAMATE 25 MG TABLET (FP) PO SCH (10:13)
[2017-03-11] MEDS: SERTRALINE HCL 50 MG TABLET (FP) PO SCH (10:13)
[2017-03-11] MEDS: METOPROLOL TARTRATE 25 MG TABLET (FP) PO SCH ×2 (10:13→21:32)
[2017-03-11] MEDS: PRENATAL VITAMINS W/ FOLIC ACID TABLET (FP) PO SCH (10:13)
[2017-03-11] MEDS: hydrOXYzine PAMOATE 50 MG CAPSULE (FP) PO PRN (10:15)
[2017-03-11] MEDS: RIVAROXABAN 20 MG TABLET PO SCH (18:35)
[2017-03-11] MEDS: THIAMINE HCL 100 MG TABLET (FP) PO SCH (21:31)
[2017-03-11] MEDS: diphenhydrAMINE HCL 50 MG CAPSULE PO SCH (21:31)
[2017-03-11] MEDS: PRAMIPEXOLE DIHYDROCHLORIDE 0.25 MG TABLET PO SCH (21:32)
[2017-03-11] MEDS: QUEtiapine FUMARATE 100 MG TABLET (FP) PO SCH (21:32)
[2017-03-12] MEDS: ASPIRIN 81 MG CHEWABLE TABLETS PO SCH (09:57)
[2017-03-12] MEDS: PRENATAL VITAMINS W/ FOLIC ACID TABLET (FP) PO SCH (09:58)
[2017-03-12] MEDS: TOPIRAMATE 25 MG TABLET (FP) PO SCH (09:58)
[2017-03-12] MEDS: valACYclovir HCL 500 MG TABLET (FP) PO SCH ×2 (09:58→21:24)
[2017-03-12] MEDS: SERTRALINE HCL 50 MG TABLET (FP) PO SCH (09:58)
[2017-03-12] MEDS: METOPROLOL TARTRATE 25 MG TABLET (FP) PO SCH ×2 (09:58→21:24)
--- NOTE | 2017-03-12 10:03 | PN ---
BHS Progress Note Note: c/o herpetic ulcers in her mouth P : viscous lidocaine valtrex 500mg bid
[2017-03-12] MEDS: LIDOCAINE VISCOUS 2% ORAL/TOP 20 ML UNIT-DOSE CUP MM PRN (13:38)
[2017-03-12] MEDS: ACETAMINOPHEN 325 MG TABLET (FP) PO PRN (17:42)
[2017-03-12] MEDS: RIVAROXABAN 20 MG TABLET PO SCH (17:42)
[2017-03-12] MEDS ORDERED: PT OWN MED DRAWER 7, Y5N ONE (19:57)
[2017-03-12] MEDS: QUEtiapine FUMARATE 100 MG TABLET (FP) PO SCH (21:22)
[2017-03-12] MEDS: PRAMIPEXOLE DIHYDROCHLORIDE 0.25 MG TABLET PO SCH (21:23)
[2017-03-12] MEDS: diphenhydrAMINE HCL 50 MG CAPSULE PO SCH (21:23)
[2017-03-12] MEDS: THIAMINE HCL 100 MG TABLET (FP) PO SCH (21:24)
[2017-03-13] MEDS: PRENATAL VITAMINS W/ FOLIC ACID TABLET (FP) PO SCH (10:30)
[2017-03-13] MEDS: SERTRALINE HCL 50 MG TABLET (FP) PO SCH (10:30)
[2017-03-13] MEDS: ASPIRIN 81 MG CHEWABLE TABLETS PO SCH (10:30)
[2017-03-13] MEDS: TOPIRAMATE 25 MG TABLET (FP) PO SCH (10:30)
[2017-03-13] MEDS: valACYclovir HCL 500 MG TABLET (FP) PO SCH ×2 (10:30→21:31)
[2017-03-13] MEDS: METOPROLOL TARTRATE 25 MG TABLET (FP) PO SCH ×2 (10:30→21:29)
[2017-03-13] MEDS: ACETAMINOPHEN 325 MG TABLET (FP) PO PRN (10:32)
[2017-03-13] MEDS: LIDOCAINE VISCOUS 2% ORAL/TOP 20 ML UNIT-DOSE CUP MM PRN (10:34)
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
[2017-03-13] MEDS: RIVAROXABAN 20 MG TABLET PO SCH (18:16)
[2017-03-13] MEDS: QUEtiapine FUMARATE 100 MG TABLET (FP) PO SCH (21:29)
[2017-03-13] MEDS: THIAMINE HCL 100 MG TABLET (FP) PO SCH (21:29)
[2017-03-13] MEDS: PRAMIPEXOLE DIHYDROCHLORIDE 0.25 MG TABLET PO SCH (21:29)
[2017-03-13] MEDS: diphenhydrAMINE HCL 50 MG CAPSULE PO SCH (21:30)
[2017-03-14] MEDS: valACYclovir HCL 500 MG TABLET (FP) PO SCH ×2 (10:09→21:33)
[2017-03-14] MEDS: PRENATAL VITAMINS W/ FOLIC ACID TABLET (FP) PO SCH (10:09)
[2017-03-14] MEDS: TOPIRAMATE 25 MG TABLET (FP) PO SCH (10:09)
[2017-03-14] MEDS: METOPROLOL TARTRATE 25 MG TABLET (FP) PO SCH (10:09)
[2017-03-14] MEDS: ASPIRIN 81 MG CHEWABLE TABLETS PO SCH (10:09)
[2017-03-14] MEDS: SERTRALINE HCL 50 MG TABLET (FP) PO SCH (10:10)
[2017-03-14] MEDS: ACETAMINOPHEN 325 MG TABLET (FP) PO PRN (10:11)
[2017-03-14] MEDS: LIDOCAINE VISCOUS 2% ORAL/TOP 20 ML UNIT-DOSE CUP MM PRN (10:12)
[2017-03-14] MEDS ORDERED: PT OWN MED DRAWER 7, Y5N ONE (10:30)
[2017-03-14] MEDS: RIVAROXABAN 20 MG TABLET PO SCH (18:30)
[2017-03-14] MEDS: PRAMIPEXOLE DIHYDROCHLORIDE 0.25 MG TABLET PO SCH (21:30)
[2017-03-14] MEDS: METOPROLOL TARTRATE 50 MG TABLET (FP) PO SCH (21:30)
[2017-03-14] MEDS: diphenhydrAMINE HCL 50 MG CAPSULE PO SCH (21:30)
[2017-03-14] MEDS: THIAMINE HCL 100 MG TABLET (FP) PO SCH (21:30)
[2017-03-14] MEDS: QUEtiapine FUMARATE 100 MG TABLET (FP) PO SCH (21:32)
[2017-03-15 06:35] VITALS: TEMP 97.9
[2017-03-15 08:52] VITALS: BP 161/70; PULSE 75
--- NOTE | 2017-03-15 09:04 | PN ---
Psychiatric Progress Note Vital Signs: Vital Signs Period Temp Pulse Resp BP Sys/Christina Pulse Ox Last 24 Hr 97.9 F 65-75 18-18 126-161/70-91 Date of Session: 03/15/17 Chief Complaint:: Discharge visit HPI: Patient addressed Alcohol,Cannabis and Cocaine dependence comorbid with PTSD,Substance induced mood disorder. ROS: Significant for HTN,Herpes ,CAD,DVT. Current Medications: Active Medications Generic Name Dose Route Start Last Admin Trade Name Freq PRN Reason Stop Dose Admin Acetaminophen 650 mg 02/24/17 11:58 03/14/17 10:11 Tylenol - PO 650 mg Q4H PRN Administration FEVER OR PAIN Al Hydroxide/Mg Hydroxide 30 ml 02/24/17 11:58 Mylanta Oral Suspension - PO Q6H PRN DYSPEPSIA Albuterol Sulfate 2 puff 02/24/17 12:00 Ventolin Hfa Inhaler - IH Q4H PRN SHORT OF BREATH/WHEEZING Aspirin 81 mg 02/25/17 10:00 03/14/17 10:09 Asa - PO 81 mg DAILY MURPHY Administration Diphenhydramine HCl 100 mg 03/11/17 22:00 03/14/17 21:30 Benadryl - PO 100 mg HS MURPHY Administration Eucalyptus/Menthol/Phenol/Sorbitol 1 each 02/24/17 11:58 Cepastat Lozenge - MM Q4H PRN SORE THROAT Guaifenesin 10 ml 02/24/17 11:58 Robitussin Dm - PO Q6H PRN COUGH Hydroxyzine Pamoate 50 mg 02/24/17 11:58 03/11/17 10:15 Vistaril - PO 50 mg Q4H PRN Administration AGITATION Lidocaine HCl 20 ml 03/12/17 10:00 03/14/17 10:12 Xylocaine 2% Viscous Oral - MM 20 ml Q4HPO PRN Administration ORAL PAIN/MOUTH SORES Loperamide HCl 4 mg 02/24/17 11:58 Imodium - PO Q6H PRN DIARRHEA Magnesium Hydroxide 30 ml 02/24/17 11:58 Milk Of Magnesia - PO DAILY PRN CONSTIPATION Metoprolol Tartrate 50 mg 03/14/17 22:00 03/14/17 21:30 Lopressor - PO 50 mg BID MURPHY Administration Nitroglycerin 0.4 mg 02/26/17 13:38 Nitrostat - SL Q5M PRN FOR CHEST PAIN Pramipexole Dihydrochloride 0.25 mg 03/03/17 20:00 03/14/17 21:30 Mirapex - PO 0.25 mg HS@2000 MURPHY Administration Multivit/Folic Acid/Iron 1 tab 02/25/17 10:00 03/14/17 10:09 Vitamins (Sjr) - PO 1 tab DAILY MURPHY Administration Pseudoephedrine/Triprolidine 1 combo 02/24/17 11:58 Actifed - PO TID PRN NASAL CONGESTION Quetiapine Fumarate 100 mg 02/24/17 22:00 03/14/17 21:32 Seroquel - PO 100 mg HS MURPHY Administration Rivaroxaban 20 mg 02/25/17 18:00 03/14/17 18:30 Xarelto - PO 20 mg DAILY@1800 MURPHY Administration Sertraline HCl 50 mg 02/25/17 10:00 03/14/17 10:10 Zoloft - PO 50 mg DAILY MURPHY Administration Thiamine HCl 100 mg 02/24/17 22:00 03/14/17 21:30 Vitamin B1 - PO 100 mg HS MURPHY Administration Topiramate 50 mg 03/06/17 10:00 03/14/17 10:09 Topamax - PO 50 mg DAILY MURPHY Administration Valacyclovir HCl 500 mg 03/12/17 22:00 03/14/17 21:33 Valtrex - PO 500 mg BID MURPHY Administration Current Side Effect: No Lab tests ordered: No Lab tests reviewed: Yes Provider note:: Patient completed this program today and will continue to address her issues on outpatient basis at [facility] .She continues to find that Seroquel 100 mg po hs,Zoloft 50 mg po daily and Topamax 50 mg po daily help to cope with depression,mood instability.Scripts for 30 days provided. Supportive therapy provided focusing on support system,coping skills utilization to maintain recovery. Patient is stable for discharge today. Total face to face time:: 35 Mental Status Exam - Mental Status Exam Alert and Oriented to: Time, Place, Person Cognitive Function: Grossly Intact Patient Appearance: Well Groomed Mood: Euthymic Affect: Mood Congruent Patient Behavior: Appropriate, Cooperative Speech Pattern: Clear Voice Loudness: Normal Thought Process: Goal Oriented Thought Disorder: Not Present Hallucinations: Denies Suicidal Ideation: Denies Homicidal Ideation: Denies Insight/Judgement: Fair Sleep: Fair Appetite: Good Muscle strength/Tone: Normal Gait/Station: Normal
[2017-03-15] MEDS: ASPIRIN 81 MG CHEWABLE TABLETS PO SCH (09:54)
[2017-03-15] MEDS: METOPROLOL TARTRATE 50 MG TABLET (FP) PO SCH (09:55)
[2017-03-15] MEDS: TOPIRAMATE 25 MG TABLET (FP) PO SCH (09:55)
[2017-03-15] MEDS: SERTRALINE HCL 50 MG TABLET (FP) PO SCH (09:55)
[2017-03-15] MEDS: PRENATAL VITAMINS W/ FOLIC ACID TABLET (FP) PO SCH (09:55)
[2017-03-15] MEDS: valACYclovir HCL 500 MG TABLET (FP) PO SCH (09:55)
[2017-03-15] MEDS: LIDOCAINE VISCOUS 2% ORAL/TOP 20 ML UNIT-DOSE CUP MM PRN (09:59)
== END 2017-03-15 10:12 | disposition home or self-care (01) | DRG 772 ==
LOC: YASAS 10:12 → Y3E 10:13
PROVIDERS: ADMIT Psychiatry & Neurology Psychiatry; ATTEND Psychiatry & Neurology Psychiatry
PROC: HZ42ZZZ Group Counseling for Substance Abuse Treatment, Cognitive-Behavioral (ICD-10-PCS; principal; 2017-03-15)
DX: F10.20 Alcohol dependence, uncomplicated (principal); F14.20 Cocaine dependence, uncomplicated; F12.20 Cannabis dependence, uncomplicated; F19.24 Other psychoactive substance dependence with psychoactive substance-induced mood disorder; F43.10 Post-traumatic stress disorder, unspecified; I25.10 Atherosclerotic heart disease of native coronary artery without angina pectoris; I10 Essential (primary) hypertension; E78.00 Pure hypercholesterolemia, unspecified; A60.04 Herpesviral vulvovaginitis; Z86.718 Personal history of other venous thrombosis and embolism; Z79.01 Long term (current) use of anticoagulants
CPT/HCPCS: 36415; 87389

== ENCOUNTER 2017-10-24 18:13 | Emergency (ER) | payer OTHER ==
[2017-10-24 18:27] VITALS: BP 145/71; PULSE 69; TEMP 98.5; BMI 31.4
--- NOTE | 2017-10-24 20:20 | PDOC ---
History of Present Illness - General History Source: Patient Exam Limitations: No Limitations - History of Present Illness Initial Comments: 10/24/17 20:29 The patient is a 57 year old female A7 with a significant PMH of fibroids, HTN, HLD, and COPD who presents to the emergency department with left lower quadrant and left pelvic pain. The patient states she was seen at [facility] in July who diagnosed her with fibroids. The patient states she had an ultrasound done at our facility and was told she had 5 small fibroids but no further measures were needed at the time. The patient notes she had been unable to hold her stool and endorses occasional runny loose stools when she coughs. The patient denies any bleeding. The patient reports she has taken Ibruprofen 600mg with minimal relief. The patient denies chest pain, shortness of breath, headache and dizziness. Denies fever, chills, nausea, vomit, diarrhea and constipation. Denies dysuria, frequency, urgency and hematuria. Allergies: EVAN inhibitors, penicillins, pineapple. Past surgical history: Tubal ligation. Stent placement. Hernia repair. Social history: History of drug and alcohol abuse. No reported cigarette use. <Tena Harrington - Last Filed: 10/24/17 20:52> <Vivien Fernandez - Last Filed: 10/24/17 23:59> - General Chief Complaint: Pain, Acute Stated Complaint: PELVIC PAIN Time Seen by Provider: 10/24/17 19:39 Past History <Tena Harrington - Last Filed: 10/24/17 20:52> - Past Medical History Anemia: Yes Asthma: Yes Cancer: No Cardiac Disorders: Yes CVA: No COPD: Yes CHF: No Dementia: No Diabetes: No GI Disorders: Yes Disorders: No HTN: Yes Hypercholesterolemia: Yes Kidney Stones: No Liver Disease: No Seizures: No Thyroid Disease: No - Surgical History Abdominal Surgery: Yes (HERNIA UMBILICAL SINCE THE AGE OF 15 ) Appendectomy: No Cardiac Surgery: Yes (STENT 1) Cholecystectomy: No Lung Surgery: No Neurologic Surgery: No Orthopedic Surgery: No - Reproductive History PID: No - Suicide/Smoking/Psychosocial Hx Smoking History: Former smoker Have you smoked in the past 12 months: No Number of Cigarettes Smoked Daily: 2 If you are a former smoker, when did you quit?: 1 YEAR Cigars Per Day: 0 Information on smoking cessation initiated: No 'Breaking Loose' booklet given: 02/20/17 Hx Alcohol Use: No Drug/Substance Use Hx: No Substance Use Type: Alcohol, Marijuana Hx Substance Use Treatment: Yes (completed [facility] in 1992,longest abstinence 11 months) <Vivien Fernandez - Last Filed: 10/24/17 23:59> - Past Medical History Allergies/Adverse Reactions: Allergies Allergy/AdvReac Type Severity Reaction Status Date / Time EVAN Inhibitors Allergy Severe Swelling Verified 10/24/17 20:50 Penicillins Allergy Severe Swelling Verified 10/24/17 20:50 pineapple [Pineapple] Allergy Severe Swelling Verified 10/24/17 20:50 Home Medications: Ambulatory Orders Aspirin 81 mg PO AM 11/21/13 Quetiapine Fumarate [Seroquel -] 100 mg PO HS #30 tablet 11/23/13 Isosorbide Dinitrate [Isordil] 30 mg PO AM #30 tablet 11/25/13 Amlodipine Besylate [Norvasc -] 5 mg PO DAILY #30 tablet 08/10/16 Valacyclovir HCl [Valtrex -] 500 mg PO DAILY #10 tablet 08/10/16 Albuterol Sulfate Inhaler - [Ventolin HFA Inhaler -] 2 puff IH Q4H PRN #0 inhaler 02/24/17 Prednisolone 1% Ophthalmic [Pred Forte 1% -] 1 drop OP QID 02/25/17 Pramipexole Dihydrochloride [Mirapex -] 0.25 mg PO HS 02/27/17 Topiramate [Topiramate] 50 mg PO DAILY 02/27/17 Aspirin [ASA -] 81 mg PO AM #30 tab.chew 03/14/17 Atorvastatin Ca [Lipitor] 80 mg PO HS #30 tab 03/14/17 Metoprolol Tartrate [Lopressor -] 50 mg PO BID #60 mg 03/14/17 Rivaroxaban [Xarelto -] 20 mg PO DAILY@1700 #30 tablet 03/14/17 Quetiapine Fumarate [Seroquel] 100 mg PO HS #30 tablet MDD 100 03/15/17 Sertraline HCl [Zoloft -] 50 mg PO DAILY #30 tablet 03/15/17 Topiramate [Topamax -] 50 mg PO DAILY #60 tablet 03/15/17 Ibuprofen [Motrin -] 600 mg PO TID PRN #15 tablet 10/24/17 Review of Systems - Review of Systems Able to Perform ROS?: Yes Comments:: 10/24/17 20:39 GENERAL/CONSTITUTIONAL: No fever or chills. No weakness. HEAD, EYES, EARS, NOSE AND THROAT: No change in vision. No ear pain or discharge. No sore throat. GASTROINTESTINAL: (+) LLQ and left pelvic region pain. No nausea, vomiting, diarrhea or constipation. GENITOURINARY: No dysuria, frequency, or change in urination. CARDIOVASCULAR: No chest pain or shortness of breath. RESPIRATORY: No cough, wheezing, or hemoptysis. MUSCULOSKELETAL: No joint or muscle swelling or pain. No neck or back pain. SKIN: No rash NEUROLOGIC: No headache, vertigo, loss of consciousness, or change in strength/ sensation. ENDOCRINE: No increased thirst. No abnormal weight change. HEMATOLOGIC/LYMPHATIC: No anemia, easy bleeding, or history of blood clots. ALLERGIC/IMMUNOLOGIC: No hives or skin allergy. <Tena Harrington - Last Filed: 10/24/17 20:52> *Physical Exam - Vital Signs Last Vital Signs Temp Pulse Resp BP Pulse Ox 98.5 F 69 16 145/71 100 10/24/17 18:24 10/24/17 18:24 10/24/17 18:24 10/24/17 18:24 10/24/17 18:24 - Physical Exam Comments: 10/24/17 20:21 Constitutional: Awake, alert, oriented. No acute distress. Head: Normocephalic. Atraumatic Eyes: PERRL. EOMI. Conjunctivae are not pale. ENT: Mucous membranes are moist and intact. Posterior pharynx without exudates or erythema. Uvula midline. Neck: Supple. Full ROM. No lymphadenopathy. Cardiovascular: Regular rate. Regular rhythm. S1, S2 regular. Distal pulses are 2+ and symmetric. Pulmonary/Chest: (+) Diminished breath sounds at the bases. No evidence of respiratory distress. Clear to auscultation bilaterally No wheezing, rales or rhonchi. Abdominal: (+) Soft but obese. (+) Left lower quadrant & left pelvic region tenderness. No rebound, guarding or rigidity. No organomegaly. No palpable masses. Good bowel sounds. Back: No CVA tenderness. Musculoskeletal: No edema. No cyanosis. No clubbing. Full range of motion in all extremities. Nocalf tenderness. Radial/pedal pulses are intact and 2+ bilaterally Skin: Skin is warm and dry. No petechiae. No purpura. Neurological: Alert and oriented to person, place, and time. Cranial nerves II -XII are grossly intact. Normal speech. Strength is grossly symmetric. No sensory deficits. Psychiatric: Good eye contact. Normal interaction, affect and behavior. <Tena Harrington - Last Filed: 10/24/17 20:52> - Vital Signs Last Vital Signs Temp Pulse Resp BP Pulse Ox 98.5 F 69 16 145/71 100 10/24/17 18:24 10/24/17 18:24 10/24/17 18:24 10/24/17 18:24 10/24/17 18:24 <Vivien Fernandez - Last Filed: 10/24/17 23:59> ED Treatment Course - LABORATORY CBC & Chemistry Diagram: 10/24/17 20:40 10/24/17 20:40 <Tena Harrington - Last Filed: 10/24/17 20:52> - LABORATORY CBC & Chemistry Diagram: 10/24/17 20:40 10/24/17 20:40 <Vivien Fernandez - Last Filed: 10/24/17 23:59> Medical Decision Making - Medical Decision Making 10/24/17 23:02 a/p: 57yo female with L lower abd pain -hx of uterine fibroids -states diarrhea/loose stool -pain worse and worse when she stands -will check labs, ct ab/pelvis poss fibroid pain vs colitis vs diverticulitis no cva ttp 10/24/17 23:[address] reviewed with the patient. pt denies pain at this time has mildly dilated hepatic ducts, no RUQ pain, no n/v pt also with fibroids, ovarian cyst - will need rehabilitation specialist follow up will need gi follow up 10/24/17 23:52 pt requested HIV and hepatitis screen hiv is negative hepatitis pending Discussed all imaging results. Pt will follow up with Gi, INSURANCE UNDERWRITER, and PMD in the AM <Vivien Fernandez - Last Filed: 10/24/17 23:59> *DC/Admit/Observation/Transfer - Attestations Scribe Attestion: 10/24/17 20:39 Documentation prepared by Tena Harrington, acting as director of medical education for Vivien Fernandez DO. <Tena Harrington - Last Filed: 10/24/17 20:52> - Discharge Dispostion Admit: No - Attestations Physician Attestion: 10/24/17 23:59 I, Dr. Vivien Fernandez DO, attest that this document has been prepared under my direction and personally reviewed by me in its entirety. I further attest, that it accurately reflects all work, treatment, procedures and medical decision -making performed by me. <Vivien Fernandez - Last Filed: 10/24/17 23:59> Diagnosis at time of Disposition: Ovarian cyst, Fibroid uterus, Dilated intrahepatic bile duct - Discharge Dispostion Disposition: HOME Condition at time of disposition: Stable - Prescriptions Prescriptions: Ibuprofen [Motrin -] 600 mg PO TID PRN #15 tablet PRN Reason: Pain - Referrals Referrals: Mick Pimentel MD [Staff Physician] - Rip Perkins MD [Staff Physician] - Kirt Sheldon MD [Staff Physician] - - Patient Instructions Printed Discharge Instructions: DI for Uterine Fibroids, DI for Ovarian Cyst Additional Instructions: Please make an appointment to see the GI specialist and the primary care physician for further eval of your dilated hepatic ducts in the next 2-3 days. This was an incidental finding on the CT scan. Please follow up with the RESTAURANT ASSISTANT MANAGER specialist for further eval of your fibroids and ovarian cyst in the next 2-3 days. Please take all medications as prescribed. Please return to the ED with any further complaints.
[2017-10-24] MEDS ORDERED: KETOROLAC TROMETHAMINE 30 MG/1 ML VIAL IVPUSH ONE (20:21)
[2017-10-24] MEDS ORDERED: SODIUM CHLORIDE 0.9% 1000 ML INFUS.BAG IV ONE (20:21)
[2017-10-24] MEDS ORDERED: KETOROLAC TROMETHAMINE 30 MG/1 ML VIAL ONE (20:26)
[2017-10-24 20:53] LABS: BASO % 0.6 % (0-2.0); EOS % 2.2 % (0-4.5); HEMATOCRIT 36.5 % (32.4-45.2); LYMPH % 38.5 % (8-40); MCH 30.9 pg (25.7-33.7); MCHC 32.8 g/dl (32.0-36.0); MEAN CELL VOLUME 94.3 fl (80-96); MEAN PLT VOLUME 9.7 fl (7.5-11.1); MONO % 6.1 % (3.8-10.2); NEUT % 52.6 % (42.8-82.8); PLATELET COUNT 218 K/MM3 (134-434); RBC 3.87 M/mm3 (3.60-5.2); RDW 14.1 % (11.6-15.6); WHITE BLOOD COUNT 5.1 K/mm3 (4.0-10.0)
[2017-10-24 20:56] LABS: URINE APPEARANCE CLEAR; URINE BILIRUBIN NEGATIVE (NEGATIVE); URINE BLOOD NEGATIVE (NEGATIVE); URINE COLOR YELLOW; URINE GLUCOSE (UA) NEGATIVE (NEGATIVE); URINE KETONE TRACE (NEGATIVE); URINE LEUK ESTERASE NEGATIVE (NEGATIVE); URINE NITRITE NEGATIVE (NEGATIVE); URINE PROTEIN 1+ (NEGATIVE); URINE UROBILINOGEN 4.0 E.U/dl mg/dL (0.2-1.0)
[2017-10-24 21:15] LABS: EPI CELLS RARE /HPF (FEW); URINE HYALINE CAST 1 /lpf; URINE MUCUS RARE
[2017-10-24 21:36] LABS: ALBUMIN 3.7 g/dl (3.4-5.0); ALK PHOS 102 U/L (45-117); ANION GAP 4 (8-16); BILIRUBIN,TOTAL 0.3 mg/dL (0.2-1.0); BLOOD UREA NITROGEN 17 mg/dL (7-18); CALCIUM 8.5 mg/dL (8.5-10.1); CHLORIDE 110 mmol/L (98-107); CO2 26 mmol/L (21-32); CREATININE 0.8 mg/dL (0.55-1.02); GLUCOSE,RANDOM 90 mg/dL (74-106); LIPASE 90 U/L (73-393); POTASSIUM 4.6 mmol/L (3.5-5.1); SGOT/AST 18 U/L (15-37); SGPT/ALT 25 U/L (12-78); SODIUM 140 mmol/L (136-145); TOT PROT 7.6 g/dl (6.4-8.2)
== END 2017-10-25 00:10 | disposition home or self-care (01) ==
LOC: JER 18:13
PROC: 3E0333Z Introduction of Anti-inflammatory into Peripheral Vein, Percutaneous Approach (ICD-10-PCS; principal; 2017-10-24)
PROC: 3E0337Z Introduction of Electrolytic and Water Balance Substance into Peripheral Vein, Percutaneous Approach (ICD-10-PCS; 2017-10-24)
DX: N83.209 Unspecified ovarian cyst, unspecified side (principal); D25.9 Leiomyoma of uterus, unspecified
CPT/HCPCS: 36415; 74177-TC; 80053; 80074; 81003; 81015; 83605; 83690; 85025; 87389; 99282-25

== ENCOUNTER 2018-04-25 15:27 | Emergency (ER) | payer OTHER ==
[2018-04-25 16:00] VITALS: BP 164/90; PULSE 58; BMI 33.0
--- NOTE | 2018-04-25 16:34 | PDOC ---
History of Present Illness <Fidel Rosenberg - Last Filed: 04/25/18 23:12> - History of Present Illness Initial Comments: 04/25/18 16:32 57 year old female with a PMH of CAD (s/p ND x2 w/stenting), HTN, HLD, fibroids , LLE DVT and COPD (not on home O2) presents to our ED c/o acute onset of L arm pain. Patient states she was sitting watching television 3 hours prior to presentation when the pain started. Pain "pulling" 06/25 localized to her lower medial arm without any identifiable triggering or relieving factors. No h /o of trauma. Patient denies chest pain, shortness of breath, abdominal pain, nausea/vomiting , diarrhea/constipation, dysuria/hematuria. Allergy: EVAN-I, Penicillin Surgical: stent, umbilical hernia repair Social: former smoker, denies other toxic habits As per EMR patient was most recently evaluated in our ED in 03/2018 for chest pain at which time Troponin (-) x2. <Brittany Brown - Last Filed: 04/25/18 23:53> - General Chief Complaint: Pain, Acute Stated Complaint: LEFT ARM PAIN Time Seen by Provider: 04/25/18 15:57 Past History <Fidel Rosenberg - Last Filed: 04/25/18 23:12> - Past Medical History Anemia: Yes Asthma: Yes Cancer: No Cardiac Disorders: Yes CVA: No COPD: Yes CHF: No Dementia: No Diabetes: No GI Disorders: Yes Disorders: No HTN: Yes Hypercholesterolemia: Yes Kidney Stones: No Liver Disease: No Seizures: No Thyroid Disease: No - Surgical History Abdominal Surgery: Yes (HERNIA UMBILICAL SINCE THE AGE OF 15 ) Appendectomy: No Cardiac Surgery: Yes (STENT 1) Cholecystectomy: No Lung Surgery: No Neurologic Surgery: No Orthopedic Surgery: No - Reproductive History PID: No - Immunization History Immunization Up to Date: Yes - Suicide/Smoking/Psychosocial Hx Smoking History: Former smoker Have you smoked in the past 12 months: No Number of Cigarettes Smoked Daily: 2 If you are a former smoker, when did you quit?: 2017 Cigars Per Day: 0 Information on smoking cessation initiated: No 'Breaking Loose' booklet given: 02/20/17 Hx Alcohol Use: No Drug/Substance Use Hx: No Substance Use Type: Alcohol, Marijuana Hx Substance Use Treatment: Yes (completed [facility] in 1992,longest abstinence 11 months) <KevinBrittany - Last Filed: 04/25/18 23:53> - Past Medical History Allergies/Adverse Reactions: Allergies Allergy/AdvReac Type Severity Reaction Status Date / Time EVAN Inhibitors Allergy Severe Swelling Verified 03/26/18 22:50 Penicillins Allergy Severe Swelling Verified 03/26/18 22:50 pineapple [Pineapple] Allergy Severe Swelling Verified 03/26/18 22:50 Home Medications: Ambulatory Orders Quetiapine Fumarate [Seroquel -] 100 mg PO HS #30 tablet 11/23/13 Aspirin [ASA -] 81 mg PO AM #30 tab.chew 03/14/17 Atorvastatin Ca [Lipitor] 80 mg PO HS #30 tab 03/14/17 Rivaroxaban [Xarelto -] 20 mg PO DAILY@1700 #30 tablet 03/14/17 Amlodipine Besylate [Norvasc -] 10 mg PO DAILY 03/27/18 Fluticasone/Salmeterol [Advair 250-50 Diskus] 1 puff IH BID 03/27/18 Hydrochlorothiazide [Hctz -] 25 mg PO DAILY 03/27/18 Metoprolol Succinate [Toprol Xl] 100 mg PO DAILY 03/27/18 Sertraline HCl [Zoloft -] 50 mg PO DAILY 03/27/18 Topiramate [Topamax] 50 mg PO BID 03/27/18 clonazePAM [Klonopin -] 1.5 mg PO BID 03/27/18 Albuterol Sulfate Inhaler - [Ventolin HFA Inhaler -] 2 puff IH Q6H PRN 04/25/18 Terconazole 0 gm VG ASDIR 04/25/18 Valacyclovir HCl [Valtrex -] 500 mg PO DAILY 04/25/18 Review of Systems - Review of Systems Constitutional: No: Chills, Fever HEENTM: No: Eye Pain, Double Vision Respiratory: No: Cough, Orthopnea Cardiac (ROS): No: Chest Pain, Edema, Lightheadedness, Palpitations ABD/GI: No: Constipated, Diarrhea, Nausea, Vomiting : No: Burning, Dysuria <KevinBrittany - Last Filed: 04/25/18 23:53> *Physical Exam - Vital Signs Last Vital Signs Temp Pulse Resp BP Pulse Ox 58 L 16 164/90 98 04/25/18 15:40 04/25/18 15:40 04/25/18 15:40 04/25/18 15:40 <Fidel Rosenberg - Last Filed: 04/25/18 23:12> - Vital Signs Last Vital Signs Temp Pulse Resp BP Pulse Ox 58 L 16 164/90 98 04/25/18 15:40 04/25/18 15:40 04/25/18 15:40 04/25/18 15:40 - Physical Exam General Appearance: Yes: Nourished, Appropriately Dressed Neck: positive: Trachea midline, Supple Respiratory/Chest: positive: Lungs Clear, Normal Breath Sounds Cardiovascular: positive: S1, S2 Gastrointestinal/Abdominal: positive: Normal Bowel Sounds, Soft Extremity: positive: Other (L medial UE TTP mid shaft volar aspect, limited ROM 2/2 to pain, 2+ radial pulse; no erythema/edema) Integumentary: positive: Normal Color, Dry, Warm Neurologic: positive: Fully Oriented, Alert <Brittany Brown - Last Filed: 04/25/18 23:53> ED Treatment Course - LABORATORY CBC & Chemistry Diagram: 04/25/18 18:35 04/25/18 18:35 - ADDITIONAL ORDERS Additional order review: Laboratory Results 04/25/18 04/25/18 04/25/18 18:35 18:35 18:35 PT with INR 21.40 H INR 1.89 H Sodium 144 Potassium 3.9 Chloride 113 H Carbon Dioxide 21 Anion Gap 10 BUN 16 Creatinine 0.8 Creat Clearance w eGFR > 60 Random Glucose 133 H Calcium 8.8 Total Bilirubin 0.2 AST 15 ALT 20 Alkaline Phosphatase 103 Creatine Kinase 157 Creatine Kinase Index 1.2 CK-MB (CK-2) 1.92 Total Protein 7.3 Albumin 3.5 04/25/18 18:35 RBC 3.73 MCV 91.0 MCHC 33.4 RDW 15.2 MPV 8.9 Neutrophils % 56.0 Lymphocytes % 35.6 Monocytes % 5.6 Eosinophils % 2.3 Basophils % 0.5 - Medications Given in the ED: ED Medications Discontinued Medications Generic Name Dose Route Start Last Admin Trade Name Freq PRN Reason Stop Dose Admin Acetaminophen 1,000 mg 04/25/18 17:21 04/25/18 18:36 Ofirmev Injection - IVPB 04/25/18 17:22 1,000 mg ONCE ONE Administration <Fidel Rosenberg - Last Filed: 04/25/18 23:12> - LABORATORY CBC & Chemistry Diagram: 04/25/18 18:35 04/25/18 18:35 <Brittany Brown - Last Filed: 04/25/18 23:53> Medical Decision Making - Medical Decision Making 04/25/18 16:59 57 year old female presents with LUE pain. PE significant for TTP of R volar mid shaft w/o erythema/edema. Will obtain arterial and venous duplex (venous less likely 2/2 to acute onset of symptoms). Reassess. 04/25/18 21:21 During course of evaluation patient became agitated, verbally abusive towards staff because she was unsatisfied with the sandwich provided for nourishment. Attempted to leave with peripheral IV in place. Security called, patient return to department for further evaluation. Venous/Arterial dopplers negative for clot. Awaiting callback from radiology to evaluate area of soft tissue swelling noted on arterial U/S. 04/25/18 23:[address] read of arterial U/S shows soft tissue hematoma. Patient symptomatically improved. Patient discharged home with return precautions and orthopedic follow-up. <Brittany Brown - Last Filed: 04/25/18 23:53> *DC/Admit/Observation/Transfer <Fidel Rosenberg - Last Filed: 04/25/18 23:12> - Discharge Dispostion Decision to Admit order: No <Brittany Brown - Last Filed: 04/25/18 23:53> Diagnosis at time of Disposition: Arm pain - Discharge Dispostion Disposition: HOME Condition at time of disposition: Good - Referrals Referrals: Erickson Dos Santos MD [Staff Physician] - - Patient Instructions Additional Instructions: A referral has been provided to orthopedic surgery. Please make an appointment for further evaluation of your arm pain. You may need a MRI to evaluate for muscle or ligament injury. Return to the Emergency Department if you experience worsening swelling, pain, redness, or any other concerning symptoms.
[2018-04-25] MEDS ORDERED: ACETAMINOPHEN 1000 MG/100 ML VIAL (NON FORMULARY) IVPB ONE (17:21)
[2018-04-25] MEDS ORDERED: ACETAMINOPHEN INJECTION 100 ML IVPB ONE (18:25)
[2018-04-25 19:06] LABS: BASO % 0.5 % (0-2.0); EOS % 2.3 % (0-4.5); HEMOGLOBIN 11.4 GM/dL (10.7-15.3); LYMPH % 35.6 % (8-40); MCH 30.4 pg (25.7-33.7); MCHC 33.4 g/dl (32.0-36.0); MEAN PLT VOLUME 8.9 fl (7.5-11.1); MONO % 5.6 % (3.8-10.2); PLATELET COUNT 220 K/MM3 (134-434); RBC 3.73 M/mm3 (3.60-5.2); RDW 15.2 % (11.6-15.6); WHITE BLOOD COUNT 5.6 K/mm3 (4.0-10.0)
[2018-04-25 19:29] LABS: ALBUMIN 3.5 g/dl (3.4-5.0); ALK PHOS 103 U/L (45-117); ANION GAP 10 (8-16); BILIRUBIN,TOTAL 0.2 mg/dL (0.2-1.0); BLOOD UREA NITROGEN 16 mg/dL (7-18); CALCIUM 8.8 mg/dL (8.5-10.1); CHLORIDE 113 mmol/L (98-107); CO2 21 mmol/L (21-32); CREATININE 0.8 mg/dL (0.55-1.02); GLUCOSE,RANDOM 133 mg/dL (74-106); POTASSIUM 3.9 mmol/L (3.5-5.1); SGOT/AST 15 U/L (15-37); SGPT/ALT 20 U/L (12-78); SODIUM 144 mmol/L (136-145); TOT PROT 7.3 g/dl (6.4-8.2)
[2018-04-25 19:40] LABS: INR 1.89 (0.83-1.09); PROTHROMBIN TIME (PATIENT) 21.4 SEC (9.7-13.0)
--- NOTE | 2018-04-25 21:35 | PDOC ---
Attending Attestation - Resident Resident Name: Brittany Brown - ED Attending Attestation I have performed the following: I have examined & evaluated the patient, The case was reviewed & discussed with the resident, I agree w/resident's findings & plan, Exceptions are as noted - HPI HPI: 04/25/18 21:29 "57F, pmh of CAD (s/p DE w/ stenting), HTN, HLD, presenting with acute onset L arm pain. Pt reports pulling sensation and pain with flexion of her fingers. Denies numbness in that extremity. Denies significant swelling. No relieving factors, no swelling or redness. Denies any recent trauma or injury. Allergies: [place]-inhibitors, penicillins, pineapple" - Physicial Exam PE: 04/25/18 21:30 "GENERAL: Awake, alert, and fully oriented, in no acute distress. HEAD: No signs of trauma EYES: PERRLA, EOMI, sclera anicteric, conjunctiva clear ENT: Auricles normal inspection, hearing grossly normal, nares patent, oropharynx clear without exudates. Moist mucosa NECK: Nontender, no stepoffs, Normal ROM, supple, no lymphadenopathy, JVD, or masses LUNGS: Breath sounds equal, clear to auscultation bilaterally. No wheezes, and no crackles HEART: Regular rate and rhythm, normal S1 and S2, no murmurs, rubs or gallops ABDOMEN: Soft, nontender, normoactive bowel sounds. No guarding, no rebound. No masses EXTREMITIES: + L forearm focal tenderness to mid-shaft volar surface, no bony tenderness or deformity, neurvascularly intract distally NEUROLOGICAL: Cranial nerves II through XII intact. 5/5 strength and sensation in all extremities, Normal speech, normal gait, normal cerebellar function SKIN: Warm, Dry, normal turgor, no rashes or lesions noted." - Medical Decision Making 04/25/18 21:32 57 F with sudden onset L forearm pain. Exam with focal pain and mild swelling to mid forearm. Suspect muscle tear vs tendon rupture given pain with flexion of digits. Infectious process unlikely as pain was acute and pt with no clinical signs of infection. Will obtain US to r/o DVT or arterial embolus. - Labs - Dopplers - Pain control
--- NOTE | 2018-04-27 08:54 | EKG ---
Test Reason : Blood Pressure : / mmHG Vent. Rate : 055 BPM Atrial Rate : 055 BPM P-R Int : 202 ms QRS Dur : 092 ms QT Int : 474 ms P-R-T Axes : 018 -16 001 degrees QTc Int : 453 ms POOR DATA QUALITY, INTERPRETATION MAY BE ADVERSELY AFFECTED SINUS BRADYCARDIA VOLTAGE CRITERIA FOR LEFT VENTRICULAR HYPERTROPHY ABNORMAL ECG WHEN COMPARED WITH ECG OF 27-MAR-2018 07:03, PREMATURE VENTRICULAR COMPLEXES ARE NO LONGER PRESENT T WAVE AMPLITUDE HAS DECREASED IN ANTEROLATERAL LEADS Confirmed by NINA HERNANDEZ MD ([id number]) on 04/27/2018 8:54:15 AM Referred By: Confirmed By:NINA HERNANDEZ MD
== END 2018-04-26 02:46 | disposition home or self-care (01) ==
LOC: JER 15:27
PROC: 3E033NZ Introduction of Analgesics, Hypnotics, Sedatives into Peripheral Vein, Percutaneous Approach (ICD-10-PCS; principal; 2018-04-25)
DX: M79.602 Pain in left arm (principal); Z87.891 Personal history of nicotine dependence; J45.909 Unspecified asthma, uncomplicated; I10 Essential (primary) hypertension; E78.00 Pure hypercholesterolemia, unspecified
CPT/HCPCS: 36415; 80053; 82550; 82553; 85025; 85610; 93005; 93010; 93931; 93971; 99285-25; J0131